=== PATIENT | male | born 1960 | race Hispanic/Latino ===

== ENCOUNTER 2017-02-04 23:45 | Emergency (ER) | payer OTHER ==
[~2017-02-04] VITALS: Ht 167.6 cm; Wt 59.0 kg
[2017-02-05] MEDS ORDERED: NAPROSYN500 MG PO (02:06)
[2017-02-05 02:08] VITALS: BP 143/85
== END 2017-02-05 02:13 | disposition home or self-care (01) ==
LOC: EME 23:45
DX: S00.81XA Abrasion of other part of head, initial encounter (principal); R07.89 Other chest pain; V49.9XXA Car occupant (driver) (passenger) injured in unspecified traffic accident, initial encounter; W22.10XA Striking against or struck by unspecified automobile airbag, initial encounter
CPT/HCPCS: 70450; 70486; 71250; 74176; 99281; 99282